=== PATIENT | female | born 1985 | race Hispanic/Latino ===

== ENCOUNTER 2019-10-12 17:57 | Emergency (ER) | payer SELFPAY ==
[~2019-10-12] VITALS: Ht 160 cm; Wt 80.7 kg
== END 2019-10-12 20:00 | disposition left against medical advice (07) ==
LOC: ED 17:57
DX: M54.2 Cervicalgia (principal); R11.0 Nausea; R51 Headache; V49.9XXA Car occupant (driver) (passenger) injured in unspecified traffic accident, initial encounter

== ENCOUNTER 2020-09-16 14:38 | Emergency (ER) | payer OTHER ==
[~2020-09-16] VITALS: Ht 160 cm; Wt 80.7 kg
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
[2020-09-16] MEDS ORDERED: POTASSIUM CHLO10 MEQ PO (14:55)
--- NOTE | 2020-09-17 08:07 | EKG ---
[facility] [address] [facility] [place], [place] [address] Signed Sinus tachycardia Possible Left atrial enlargement Borderline ECG No previous ECGs available Confirmed by EAN KEITA MD ([id number]) on 09/17/2020 8:07:00 AM Electronically Signed By: EAN KEITA MD 09/17/20806 PATIENT NAME: KERI XIE Electrocardiogram DATE OF : 87 PHYSICIAN: EAN KEITA MD REPORT #: [id number] REPORT IS CONFIDENTIAL AND NOT TO BE RELEASED WITHOUT AUTHORIZATION
== END 2020-09-16 20:13 | disposition home or self-care (01) ==
LOC: ED 14:38
DX: E87.6 Hypokalemia (principal); Z79.899 Other long term (current) drug therapy
CPT/HCPCS: 71045; 80053; 83735; 84132; 84484; 85025; 85610; 93005; 93010; 96365; 96366; 96375; 99285-25; J2405; J3480; J7030; J7060

== ENCOUNTER 2024-06-29 21:11 | Emergency (ER) | payer OTHER ==
[~2024-06-29] VITALS: Ht 160 cm; Wt 78.4 kg
[~2024-06-29 21:11] MED LIST: POTASSIUM CHLO10 MEQ PO
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
[2024-06-29] MEDS ORDERED: ondansetron HCL 4 MG/2 ML VIAL IV ONE ×2 (21:30→22:15)
[2024-06-29 21:43] LABS: HEMOGLOBIN 13.4 g/dL (12.0-18.0); MCH 31.9 (27-36); MCHC 34.5 g/dl (30-36); MCV 92.6 fl (81-99); PLATELET COUNT 222 K/uL (140-440); RBC 4.21 M/ul (4.3-5.7); RDW 13.2 (10.5-15.0)
[2024-06-29 21:56] LABS: BANDS, MANUAL DIFF 2; LYMPHOCYTES, MANUAL DIFF 25; MONOCYTES, MANUAL DIFF 3; NEUTROPHILS, MANUAL DIFF 70
[2024-06-29 21:57] LABS: ALBUMIN/GLOBULIN RATIO 0.98 (1.1-2.4); ANION GAP 18.3 (7-21); BILIRUBIN, TOTAL 0.3 ng/dL (0.2-1.0); BUN/CREATININE RATIO 18.05 (6.0-28.6); CALCIUM 9.2 mg/dL (8.5-10.1); CREATININE, SERUM 0.72 mg/dL (0.55-1.02); MAGNESIUM 2.1 mg/dL (1.8-2.4); POTASSIUM 3.3 mmol/L (3.5-5.1); PROTEIN, TOTAL 8.1 g/dL (6.4-8.2)
[2024-06-29] MEDS ORDERED: POTASSIUM CHLORIDE 10 MEQ TABCR PO ONE (22:15)
[2024-06-29] MEDS ORDERED: KETOROLAC TROMETHAMINE 30 MG/ML VIAL IV ONE (22:15)
[2024-06-29 22:47] LABS: INFLUENZA B NAA NEGATIVE (NEGATIVE); RESPIRATORY SYNCYTIAL VIR NAA NEGATIVE (NEGATIVE)
[2024-06-29 23:09] VITALS: BP 123/79
== END 2024-06-29 23:10 | disposition home or self-care (01) ==
LOC: ED 21:11
PROVIDERS: Internal Medicine
DX: E87.6 Hypokalemia (principal); B34.9 Viral infection, unspecified; Z79.899 Other long term (current) drug therapy
CPT/HCPCS: 36415; 80053; 83735; 84100; 84703; 85025; 87502; A9270; J1885; J2405; U0002